=== PATIENT | female | born 1975 | race Caucasian/White ===

== ENCOUNTER 2017-01-03 08:24 | Emergency (ER) | payer MEDICAID ==
[2017-01-03 09:10] LABS: APPEARANCE CLEAR (CLEAR); BILIRUBIN NEGATIVE (NEGATIVE); COLOR YELLOW (YELLOW); GLUCOSE NEGATIVE (NEGATIVE); KETONE NEGATIVE (NEGATIVE); NITRITE NEGATIVE (NEGATIVE); PROTEIN NEGATIVE (NEGATIVE); UROBILINOGEN NORMAL (NORMAL)
[2017-01-03 09:16] LABS: BACTERIA FEW /hpf (NONE SEEN); EPITHELIAL CELLS 0-5 /hpf (0-5); MUCUS <1+ /lpf (NONE SEEN); RED CELLS - URINE OCC /hpf (0-5)
[2017-01-03 11:22] LABS: HCG URINE NEGATIVE (NEGATIVE)
[2017-03-02] MEDS ORDERED: AZO CRANBERRY PO (13:59)
[2017-03-02] MEDS ORDERED: LEXAPRO20 MG PO (13:59)
[2017-03-02] MEDS ORDERED: STOOL SOFTENER100 M1 PO (14:00)
[2017-03-02] MEDS ORDERED: CLARITIN 10 MG10 MG PO (14:00)
[2017-03-03 15:59] VITALS: BMI 28.4
== END 2017-01-03 11:59 | disposition home or self-care (01) ==
LOC: D.ER 08:24
PROVIDERS: Emergency Medicine; Physician Assistant
DX: R10.12 Left upper quadrant pain (principal); N39.0 Urinary tract infection, site not specified; F17.200 Nicotine dependence, unspecified, uncomplicated

== ENCOUNTER 2017-01-21 12:34 | Day surgery (SDC) | payer MEDICAID ==
[2017-01-21 13:06] LABS: BASOPHILS 0.2 % (0-2); EOSINOPHILS 1.4 % (0-7); HEMATOCRIT 37.4 % (36.0-48.0); HEMOGLOBIN 12.7 g/dL (12-16); IMMATURE GRANULOCYTES 0.2 % (0-5); LYMPHOCYTES 26.1 % (15-50); MCH 31.7 pg (26.0-34.0); MCV 93.3 fL (80.0-100.0); MEAN PLATELET VOLUME 8.8 fL (7.4-10.4); MONOCYTES 5.7 % (2-11); NEUTROPHILS 66.4 % (40-80); PLATELET COUNT 267 10x3/uL (130-400); RBC 4.01 10x6/uL (4.00-5.40); RDW 12.8 % (11.5-14.5); WBC 8.5 10x3/uL (4.8-10.8)
[2017-01-21 13:37] LABS: HCG SERUM NEGATIVE (NEGATIVE)
[2017-01-21] MEDS ORDERED: HYDROCODONE-APA1 TAB PO (15:33)
[2017-01-21] MEDS ORDERED: LEXAPRO20 MG PO (15:34)
[2017-01-21] MEDS ORDERED: FOLIC ACID1 MG PO (15:34)
[2017-01-21] MEDS ORDERED: FLOMAX0.4 MG PO (15:34)
[2017-01-21] MEDS ORDERED: BUPROPION HCL100 MG PO (15:34)
[2017-01-21 15:42] VITALS: BP 112/66; BMI 31.2
--- NOTE | 2017-01-21 17:06 | NUR ---
1630-UPDATED ESTIMATED TIME TO SURGERY WILL BE AFTER 1999.
--- NOTE | 2017-01-21 18:23 | NUR ---
1800 UPDATED PATIENT OF DELAY WITH SURGERY. TOLD WILL BE MOVING TO ANOTHER ROOM 2207 THAN TO SURGERY.
--- NOTE | 2017-01-21 19:27 | NUR ---
PT AMBULATED FROM OUTPT WITH NURSE AND AT SIDE. ORIENTED TO ROOM AND CALL LIGHT. REPORTS NO NEEDS AT THIS TIME. CALL LIGHT AT SIDE.
--- NOTE | 2017-01-21 21:00 | NUR ---
PT IN BED WITH AT THE BEDSIDE AWAITING SURGERY. ASSIGNED NURSE HAS ASSISTED HER WITH ALL THE PREP SHE NEEDS FOR PROCEDURE. RESPIRATIONS EASY AND NO DISTRESS NOTED. THE BED IS LOW, RAILS UP X'S 2 WITH THE CALL LIGHT AT HAND.
--- NOTE | 2017-01-21 22:11 | NUR ---
ORDER RECEIVED FROM DR MCLAUGHLIN FOR A NICOTINE PATCH AND VALIUM 5MG PO X1.
--- NOTE | 2017-01-21 23:23 | NUR ---
OUT OF ROOM TO SURGERY
--- NOTE | 2017-01-22 00:29 | NUR ---
RETURNED FROM SURGERY
--- NOTE | 2017-01-25 10:57 | OP ---
PATIENT NAME: JAVIER JOHN MEDICAL RECORD: [id number] :77 LOCATION:D.OPS ADMISSION DATE: SURGEON: HÉCTOR MCLAUGHLIN MD DATE OF OPERATION: 01/22/2017 SURGEON: Héctor Mclaughlin MD ANESTHESIA: TIVA by Phil Hardwick CRNA. PREOPERATIVE DIAGNOSES: Left ureteral and renal stones, 6 mm each times 2. PROCEDURES: Cystoscopy and left ureteral stent insertion with string attached 6-Liberian x 22 cm. FINDINGS: Radiodense stones, one in the proximal left ureter and one in the left kidney. ESTIMATED BLOOD LOSS: Loss None. CLINICAL HISTORY: This is a 41-year-old female, who was found to have bilateral renal stones on the CT scan in 2014. She did not do anything about these stones. Recently, she complained of left-sided flank pain. A CT scan shows one of the 6-mm stones in the left kidney has now gone into the left proximal ureter. There is still another 6-mm stone in the left kidney. She also has a 5-mm stone, which is nonobstructive in the right kidney. She comes now to have a left ureteral stent inserted and we will treat her stones with ESWL in the future. She was given Ancef IV clearing distribution clerk to the OR. DESCRIPTION OF PROCEDURE: The patient was given IV sedation. She was then placed in the dorsal lithotomy position and prepped and draped. A 21-Liberian cystoscope with 30-degree lens was used for visualization. She has single ureteral orifices on each side. No bladder tumors were seen. On fluoroscopy, the stones were easily seen as they are quite radiodense. A Sensor wire was placed into the left ureteral orifice and placed up into the left renal pelvis. Over the wire, a 6-Liberian x 22 cm ureteral stent was inserted. Once the proximal end of the stent was within the kidney, the wire was entirely withdrawn. The distal end of the stent was pushed into the bladder using the pusher. The bladder was then emptied through the cystoscope, sheath, and then the scope was entirely removed. The string on the distal end of the stent is maintained. It was taped to the patient's suprapubic area with a small piece of Tegaderm. The patient was awakened and brought to recovery room. She will be sent home. I will arrange for outpatient lithotripsy in the near future. TRANSINT:[id number] Voice Confirmation ID: [id number] DOCUMENT ID: [id number] HÉCTOR MCLAUGHLIN MD at 1057 CC: [id number] DICTATION DATE: 01/22/17 0018 COMMODITY DIRECTOR: 01/22/17 0105 [facility] 01/22/17 [place] [id number] [place] [id number]
[2017-03-02] MEDS ORDERED: LEXAPRO20 MG PO (13:59)
[2017-03-02] MEDS ORDERED: AZO CRANBERRY PO (13:59)
[2017-03-02] MEDS ORDERED: STOOL SOFTENER100 M1 PO (14:00)
[2017-03-02] MEDS ORDERED: CLARITIN 10 MG10 MG PO (14:00)
== END 2017-01-22 01:51 | disposition home or self-care (01) ==
LOC: D.OPS 12:34 → D.MS 19:13 → D.OPS 01-22 01:51
PROVIDERS: Anesthesiology
DX: N20.2 Calculus of kidney with calculus of ureter (principal); F17.200 Nicotine dependence, unspecified, uncomplicated; Z01.812 Encounter for preprocedural laboratory examination

== ENCOUNTER 2017-01-23 13:45 | Emergency (ER) | payer MEDICAID ==
[~2017-01-23 13:45] MED LIST: BUPROPION HCL100 MG PO; FLOMAX0.4 MG PO; FOLIC ACID1 MG PO; HYDROCODONE-APA1 TAB PO; LEXAPRO20 MG PO
[2017-03-02] MEDS ORDERED: LEXAPRO20 MG PO (13:59)
[2017-03-02] MEDS ORDERED: AZO CRANBERRY PO (13:59)
[2017-03-02] MEDS ORDERED: CLARITIN 10 MG10 MG PO (14:00)
[2017-03-02] MEDS ORDERED: STOOL SOFTENER100 M1 PO (14:00)
== END 2017-01-23 15:54 | disposition home or self-care (01) ==
LOC: D.ER 13:45
DX: G89.18 Other acute postprocedural pain (principal)

== ENCOUNTER 2017-01-27 09:39 | Day surgery (SDC) | payer MEDICAID ==
[2017-01-27 10:36] VITALS: BMI 30.3
--- NOTE | 2017-01-27 14:36 | NUR ---
1400 IV DC WITH CATHER TIP INTACT
--- NOTE | 2017-01-27 14:41 | OP ---
PATIENT NAME: JAVIER JOHN MEDICAL RECORD: [id number] :77 LOCATION:D.OPS ADMISSION DATE: SURGEON: HÉCTOR MCLAUGHLIN MD DATE OF OPERATION: 01/27/2017 SURGEON: Héctor Mclaughlin MD ANESTHESIA: TIVA by Cathleen Zelaya CRNA PREOPERATIVE DIAGNOSES: Left proximal ureteral stone, 6 mm and left renal stone, 6 mm. PROCEDURE: Left ESWL times 3000 shocks. FINDINGS: Radiodense stone. BLOOD LOSS: None. CLINICAL HISTORY: This is a 41-year-old female with a prior history of kidney stones. She has a strong family history of kidney stones in her sister, her brother, and her mother. Recently, she had left renal colic from a renal stone, which went into the UP junction. I have inserted a left ureteral stent. She comes now to have lithotripsy to try to clear out the proximal ureteral stone. She was given Ancef regional safety manager to the OR. DESCRIPTION OF PROCEDURE: The patient was placed on treatment table. The stones were radiodense and easily targeted. We targeted the proximal ureteral stone on the left side in 2 planes. Then, 3000 shocks were given to the stone. The stone did not visibly appear to be altered and so it may not have broken up at all. I will see her in the office in 1 week's time with a KUB. If the stone was untouched by the lithotripsy, then we may have to arrange for a percutaneous nephrolithotomy to get the stones out. TRANSINT:[id number] Voice Confirmation ID: [id number] DOCUMENT ID: [id number] HÉCTOR MCLAUGHLIN MD at 1441 CC: [id number] DICTATION DATE: 01/27/17 1348 COKE INSPECTOR: 01/27/17 1354 [facility] [address] [place] [address]
[2017-03-02] MEDS ORDERED: LEXAPRO20 MG PO (13:59)
[2017-03-02] MEDS ORDERED: AZO CRANBERRY PO (13:59)
[2017-03-02] MEDS ORDERED: CLARITIN 10 MG10 MG PO (14:00)
[2017-03-02] MEDS ORDERED: STOOL SOFTENER100 M1 PO (14:00)
== END 2017-01-27 14:30 | disposition home or self-care (01) ==
LOC: D.OPS 09:39
DX: N20.0 Calculus of kidney (principal); N20.1 Calculus of ureter; Z01.812 Encounter for preprocedural laboratory examination

== ENCOUNTER → 2017-02-04 12:44 | Outpatient (CLI) | payer MEDICAID ==
[2017-01-27 10:36] VITALS: BMI 30.3
[~2017-02-04 12:44] MED LIST changes: +AZO CRANBERRY PO; +CLARITIN 10 MG10 MG PO; +STOOL SOFTENER100 M1 PO; +TUMS500 MG PO; +[UNRECOGNIZED DRUG - OTHER]
== END | disposition home or self-care (01) ==
LOC: D.RAD 02-01 08:15
DX: N20.0 Calculus of kidney (principal)

== ENCOUNTER → 2017-02-11 17:10 | Outpatient (CLI) | payer MEDICAID ==
[2017-01-27 10:36] VITALS: BMI 30.3
== END | disposition home or self-care (01) ==
LOC: D.LABREF 17:10
DX: N39.0 Urinary tract infection, site not specified (principal)

== ENCOUNTER → 2017-02-18 18:04 | Outpatient (CLI) | payer MEDICAID ==
[2017-01-27 10:36] VITALS: BMI 30.3
== END | disposition home or self-care (01) ==
LOC: D.LABREF 18:04
DX: N39.0 Urinary tract infection, site not specified (principal)

== ENCOUNTER 2017-03-03 05:55 | Day surgery (SDC) | payer MEDICAID ==
[2017-03-02 14:13] LABS: BASOPHILS 0.2 % (0-2); EOSINOPHILS 1.6 % (0-7); HEMATOCRIT 36.9 % (36.0-48.0); HEMOGLOBIN 12.5 g/dL (12-16); IMMATURE GRANULOCYTES 0.1 % (0-5); LYMPHOCYTES 21.8 % (15-50); MCH 31.7 pg (26.0-34.0); MCHC 33.9 g/dL (31.0-37.0); MCV 93.7 fL (80.0-100.0); MEAN PLATELET VOLUME 8.6 fL (7.4-10.4); NEUTROPHILS 69.3 % (40-80); PLATELET COUNT 273 10x3/uL (130-400); RBC 3.94 10x6/uL (4.00-5.40); WBC 9.8 10x3/uL (4.8-10.8)
[2017-03-02 14:29] LABS: APTT 25.8 SECONDS (22.8-39.4); INR 0.97 (0.85-1.17); PROTIME 12.5 SECONDS (11.6-15.0)
[2017-03-02 14:34] LABS: CALC OSMOLALITY 276 mosm/kg (275-300); CALCIUM 8.9 mg/dL (8.5-10.1); CARBON DIOXIDE 26.2 mmol/L (21.0-32.0); CHLORIDE - SERUM 103 mmol/L (98-107); CREATININE - SERUM 0.8 mg/dL (0.6-1.3); GLUCOSE 105 mg/dL (74-106); POTASSIUM - SERUM 3.8 mmol/L (3.5-5.1); SODIUM 138 mmol/L (136-145); UREA NITROGEN 15 mg/dL (7-18); eGFR NON AFRICAN AMERICAN 84 mL/min (90-120)
[~2017-03-03] VITALS: Ht 154.9 cm; Wt 68.2 kg
--- NOTE | ~2017-03-03 | HEMODYNAMI ---
PATIENT:JAVIER JOHN MEDICAL RECORD: [id number] : 77 LOCATION:[facility] ADMISSION DATE: 03/03/17 Generatedon:03/03/20179:30 Patient name: JAVIER JOHN Patient #: [id number] SSN: D OB: 1975 Date of study: 03/03/2017 Page: Of Hemodynamic Procedure Report Patient Data Patient Demographics Procedure consent was obtained First Name: JAVIER Gender: Female Last Name: DORA : 1975 Middle Initial: A Age: 41 year(s) Patient #: [id number] Race: Unknown Additional ID: [id number] Contact details [address]: [address] [place] [address] [place] [address] State: [place] City: [place] Zip code: [address] Past Medical History Allergies: No known allergies Admission Admission Data Admission Date: 03/03/2017 Admission Time: 5:55 Procedure Procedure Types Cath Procedure Peripheral Cath Diagnostic Procedure Cath Peripheral Nephro Nephrostomy Tubes Procedure Description Procedure Date Procedure Date: 03/03/2017 Procedure Start Time: 9:01 Procedure Staff Name Function Reinaldo Mayen MD Performing Physician Vivian Jones RT Monitor Fracisco Fitzpatrick RT Scrub Avril España RN Nurse Vivian Jones RT Environmental Field Technician Procedure Data Cath Procedure Fluoroscopy Diagnostic fluoroscopy Total fluoroscopy Time: 3 time: 3 min min Diagnostic fluoroscopy Total fluoroscopy dose: 103 dose: 103 mGy mGy Contrast Material Contrast Material Type Amount (ml) Isovue 300 25 Procedure Medications Medication Administration Route Dosage Oxygen NC 3 l/min Lidocaine 1% added to field 20 Heparin Flush Bag 2 bags (1000units/500ml NS) Versed I.V. 1 mg Fentanyl I.V. 50 mcg Versed I.V. 1 mg Fentanyl I.V. 50 mcg Versed I.V. 1 mg Fentanyl I.V. 50 mcg Versed I.V. 1 mg Fentanyl I.V. 50 mcg Hemodynamics Rest Heart Rate: 79 (bpm) Snapshots Pre Cath Intra NCS Post Cath Vital Signs Time Heart Resp SPO2 etCO2 NIBP (mmHg) Rhythm Pain Sedation Rate (ipm) (%) (mmHg) Status Level (bpm) 8:40:10 70 14 100 27.9 113/77(96) NSR 0 (11) 10(A) , No pain 8:44:21 74 9 100 33.1 111/79(105) NSR 0 (11) 10(A) , No pain 8:48:31 75 10 100 33.2 108/76(86) NSR 0 (11) 10(A) , No pain 8:52:43 76 12 100 32.4 128/70(95) NSR 0 (11) 10(A) , No pain 8:57:05 69 11 100 34.7 108/65(97) NSR 0 (11) 10(A) , No pain 9:02:04 68 11 100 34.7 116/71(99) NSR 0 (11) 10(A) , No pain 9:06:18 67 14 100 33.9 115/74(94) NSR 0 (11) 10(A) , No pain 9:10:30 77 18 100 30.2 102/74(82) NSR 0 (11) 10(A) , No pain 9:14:38 75 14 100 37.7 107/72(85) NSR 0 (11) 10(A) , No pain 9:18:48 70 12 99 36.9 112/70(91) NSR 0 (11) 10(A) , No pain 9:22:56 80 13 99 30.9 122/83(95) NSR 0 (11) 10(A) , No pain 9:27:02 81 21 98 6.7 114/79(93) NSR 0 (11) 10(A) , No pain Medications Time Medication Route Dose Verified Delivered Reason Notes Effec tiveness by by 8:39:57 Oxygen NC 3 Avril Mackenzie used for l/min Taco España mitten sewer RN 8:40:15 Lidocaine 1% added 20ml Avril Najera for local to vial Taco Mayen MD anesthetic field RN 8:41:03 Heparin Flush 2 Avril Najera used for Bag bags Taco Mayen MD procedure (1000units/500ml RN NS) 9:04:36 Versed I.V. 1 mg Reinaldo Avril for Taco Mayen RN sedation 9:05:30 Fentanyl I.V. 50 Reinaldo Avril for mcg Taco Mayen RN sedation 9:11:13 Versed I.V. 1 mg Reinaldo Avril for Taco Mayen RN sedation 9:11:22 Fentanyl I.V. 50 Reinaldo Avril for mcg Taco Mayen RN sedation 9:19:20 Versed I.V. 1 mg Reinaldo Avril for Taco Mayen RN sedation 9:19:28 Fentanyl I.V. 50 Reinaldo Avril for mcg Taco Mayen RN sedation 9:26:32 Versed I.V. 1 mg Reinaldo Avril for Taco Mayen RN sedation 9:26:41 Fentanyl I.V. 50 Reinaldo Avril for mcg Taco Mayen RN sedation Procedure Log Time Note 8:27:37 Use device set IR Diagnostic 8:27:39 Sterile Angiographic Pack opened to sterile field. 8:27:40 Bag Decanter (2002S) opened to sterile field. 8:27:52 KIT, INTRODUCER ACCUSTICK II W/C opened to sterile field. 8:28:03 Time tracking: Regular hours 8:28:19 Plan of Care:Hemodynamics will remain stable., Cardiac rhythm will remain stable., Comfort level will be maintained., Respiratory function will remain adequate., Patient/ family verbilizes understanding of procedure., Procedure tolerated without complication., Recovers from procedure without complications.. 8:28:44 Patient received from Outpatients to IR Alert and oriented. Tansferred to table in Supine position. 8:29:00 Signed procedure consent form obtained from patient. 8:29:08 H&P Date Dictated: 03/03/2017 Within 30 days and on chart.. 8:29:11 Pre-procedure instructions explained to patient. 8:29:11 Pre-op teaching completed and patient verbalized understanding. 8:29:13 Family in waiting room. 8:29:16 Patient NPO since Midnight. 8:29:57 Patient allergic to No known allergies 8:30:03 Is the patient allergic to Iodine/contrast media? No. 8:30:06 Is patient on blood thinner?No 8:30:09 Patient diabetic? No. 8:30:12 8:30:13 ----Pre-sedation anethsthesia assessment.---- 8:30:16 Previous problem with sedation/anesthesia? No ? 8:30:19 Snore? No 8:30:21 Sleep apnea? No 8:30:25 Deviated septum? No 8:30:27 Opens mouth fully? Yes 8:30:29 Sticks out tongue? Yes 8:30:32 Airway obstruction? No ? 8:30:36 Dentures? No ? 8:30:51 IV patent on arrival in left hand with 0.9% NaCl at [facility]. 8:30:57 8:38:40 ECG and BP/O2 sat monitors applied to patient. 8:38:41 Vital chart was started 8:38:42 Baseline sample Acquired. 8:38:43 Full Disclosure recording started 8:38:44 8:39:00 Left renal area was prepped with chlora-prep and draped in sterile fashion 8:39:57 Oxygen 3 l/min NC was administered by Avril España RN; used for procedure; 8:40:15 Lidocaine 1% 20ml vial added to field was administered by Reinaldo Mayen MD; for local anesthetic; 8:41:03 Heparin Flush Bag (1000units/500ml NS) 2 bags was administered by Reinaldo Mayen MD; used for procedure; 8:59:00 Physician arrived 9:00:31 --------ALL STOP TIME OUT------ 9:00:32 Final Timeout: patient, procedure, and site verified with staff and physician. All members of the team are in agreement. 9:00:40 Sedation plan: IV Moderate Sedation Medication:Versed, Fentanyl 9:00:45 Patient pain scale 0/10 ?. 9:00:50 9:01:06 Procedure started. 9:01:23 Local anesthetic to Lt renal area with Lidocaine 1% by Reinaldo Mayen MD.INITIAL ACCESS ONLY 9:04:36 Versed 1 mg I.V. was administered by Avril España RN; for sedation; 9:05:30 Fentanyl 50 mcg I.V. was administered by Avril España RN; for sedation; 9:06:22 CHIBA 22 X 15 needle opened to sterile field. 9:06:53 ultrasound guidance used 9:11:13 Versed 1 mg I.V. was administered by Avril España RN; for sedation; 9:11:22 Fentanyl 50 mcg I.V. was administered by Avril España RN; for sedation; 9:19:20 Versed 1 mg I.V. was administered by Avril España RN; for sedation; 9:19:28 Fentanyl 50 mcg I.V. was administered by Avril España RN; for sedation; 9:21:33 Terumo TORQUE DEVICE PLASTIC .038 opened to sterile field. 9:21:39 Terumo ANGLE 180L glide wire opened to sterile field. 9:23:21 Terumo 5FR ANGLED 65CM glide catheter opened to sterile field. 9:23:37 Terumo Angled SS 180cm glide wire opened to sterile field. 9:26:13 Tegaderm 4 x 4 (1626W) opened to sterile field. 9:26:32 Versed 1 mg I.V. was administered by Avril España RN; for sedation; 9:26:41 Fentanyl 50 mcg I.V. was administered by Avril España RN; for sedation; 9:27:14 5fr glidecath placed in the left kidney 9:28:12 Procedure ended.(Physican Out) 9:28:27 Fluoroscopy time 03.00 minutes. 9:28:35 Fluoroscopy dose: 103 mGy 9:28:35 Flurop Dose total: 103 9:28:39 Contrast amount:Isovue 300 25ml. 9:28:45 Procedure and supply charges have been captured, reviewed, submitted and are correct. 9:28:52 Report given to Outpatients. 9:29:03 Patient transfered to Outpatients with Stretcher. 9:29:59 Vital chart was stopped Device Usage Item Name Manufacture Quantity Catalog Hospital Part Current Minimal Lot# / Number Charge Number Stock Stock Serial# Code Sterile Cardinal 1 [id number] 5 Angiographic Health Pack Bag Decanter Microtek 1 2001S [id number] 5 (2001S) Medical Inc. KIT, Mcgrady 1 [id number] [id number] [id number] [id number] 5 INTRODUCER Scientific ACCUSTICK II W/C CHIBA 22 X Cook Medical 1 [id number] 074484 [id number] 5 15 needle Terumo Mcgrady 1 TD01 876729 594205 736825 5 TORQUE Scientific DEVICE PLASTIC .038 Terumo ANGLE Terumo 1 [id number] 641518 247878 349548 5 180L glide wire Terumo 5FR Terumo 1 [id number] 235367 983899 5 ANGLED 65CM glide catheter Terumo Terumo 1 [id number] 873094 841228 5 Angled SS 180cm glide wire Tegaderm 4 x 3M 1 1626W 707842 [id number] [id number] 5 4 (1626W) Signature Audit Breese Stage Time Signature Unsigned Intra-Procedure 03/03/2017 Vivian Jones 9:29:56 AM RT(R) Signatures Monitor : Vivian Jones RT Signature : Date : Time : [facility] [address] [place] [address]
[~2017-03-03 05:55] MED LIST changes: -TUMS500 MG PO; -[UNRECOGNIZED DRUG - OTHER]
[2017-03-03] MEDS ORDERED: [UNRECOGNIZED DRUG - OTHER] (07:31)
[2017-03-03] MEDS ORDERED: TUMS500 MG PO (07:33)
[2017-03-03 07:39] VITALS: BP 100/52; BMI 29.9
[2017-03-03 08:00] LABS: HCG URINE NEGATIVE (NEGATIVE)
--- NOTE | 2017-03-03 12:05 | NUR ---
CYSTO DONE PRIOR TO TURNING FOR PERC NEPHRO PROCEDURE, SAFETY MEASURES TAKEN PRESSURE POINTS PADDED AND SEURED ALL AREAS CHECKED FOR IMPINGEMENT NONE FOUND, DR MCLAUGHLIN PRESENT FOR POSITIONING, [facility]
--- NOTE | 2017-03-03 14:29 | NUR ---
PATIENT WAS POSITIONED LITHOTOMY AFTER PERC NEPHRO FOR CYSTO URETEROSCOPY, PATIENT MOVED WITH CARE AND PRECAUTIONS, DR MCLAUGHLIN PRESENT FOR TRINY XAVIER
[2017-03-03 15:52] VITALS: BP 96/62
[2017-03-03 15:59] VITALS: BP 96/62; Ht 154.9 cm; Wt 68.2 kg
--- NOTE | 2017-03-03 16:06 | NUR ---
PT ADMITTED TO FLOOR FROM RECOVERY ROOM. VSS.
[2017-03-03 20:00] VITALS: BP 100/70
[2017-03-04] VITALS: BP 131/77
[2017-03-04 04:00] VITALS: BP 104/62
--- NOTE | 2017-03-04 07:15 | NUR ---
REPORT RECEIVED FROM BLUE LINE TRIMMER NURSE. CALL LIGHT IN REACH.
[2017-03-04 08:55] VITALS: BP 106/70
--- NOTE | 2017-03-04 09:09 | NUR ---
ASSESSMENT COMPLETED. STATES HER HEAD IS HURTING AT AN 8 ON SCALE OF 0-10. EXPLAINED TO PATIENT THAT IT COULD BE A REBOUND COTTON FROM ALL OF THE PAIN MEDS SHE HAS HAD. AM MEDS ADMINISTERED WITH NORCO PO. ASSISTED PATIENT TO CHAIR FOR BREAKFAST BECAUSE SHE HAS NOT BEEN OOB YET. SCDs TO BLE. CALL LIGHT IN REACH. WILL CONTINUE WITH PLAN OF CARE.
--- NOTE | 2017-03-04 11:13 | OP ---
PATIENT NAME: JAVIER JOHN MEDICAL RECORD: [id number] :77 LOCATION:D.MS [id number] ADMISSION DATE: SURGEON: HÉCTOR MCLAUGHLIN MD DATE OF OPERATION: 03/03/2017 SURGEON: Héctor Mclaughlin MD ANESTHESIA: General anesthesia by Kalin Arroyo MD PREOPERATIVE DIAGNOSES: Left renal stone, 6 mm; and radiodense left proximal ureteral 6-mm stone. POSTOPERATIVE DIAGNOSES: Left renal stone, 6 mm; and radiodense left proximal ureteral 6-mm stone. PROCEDURES: Cystoscopy, left percutaneous nephrolithotomy, left ureteroscopy and holmium laser lithotripsy, stone extraction, and left nephrostomy tube insertion. FINDINGS: Radiodense stones. Cluster of small rounded beads in the kidney, adding up to 6 mm in size. In the ureter, was a very hard impacted calcification. ESTIMATED BLOOD LOSS: Less than 100 mL. CLINICAL HISTORY: This is a 41-year-old female with a prior history of kidney stones. She initially presented with acute left flank pain due to a 6-mm stone lodged in the proximal ureter. There was also a nonobstructive 6-mm stone, which was radiodense in the left kidney. She had a left ureteral stent inserted and we took her to lithotripsy. The lithotripsy did not break either the stones up at all on followup KUB. She comes now to have a left percutaneous nephrolithotomy with view to taking out the stone in the kidney and also to remove the stone in the proximal ureter by ureteroscopy in an antegrade fashion. Earlier today, she had placement of a nephroureteral catheter which goes from the skin into the left kidney, down the ureter, and into the bladder. Her current stent is also still present. She was given Ancef cotton puller to the OR. She is not allergic to any medication. DESCRIPTION OF PROCEDURE: The patient was initially prepped and draped in supine position after having been given general anesthetic. She was frog legged and then we performed cystoscopy with rigid cystoscope. The old ureteral stent was removed entirely. The nephroureteral access tube was drawn out through the urethra. It was in the position between the legs. We then turned over into prone position. She was then reprepped and redraped. The nephroureteral tube was accessed using an Amplatz Super Stiff wire. Once this wire was down through the nephroureteral tube and out through its exit between the legs, a clamp was applied to the distal end of the wire with a hemostat. The nephroureteral access sheath could then be completely removed without losing our access. A small incision was made on either side of the wire sufficient to allow our working sheath to be placed. A dual lumen catheter was placed down the proximal ureter and a second wire, which was a Sensor wire, was placed down the ureter into the bladder. This acts as a safety wire. The Sensor wire was clamped to the drapes and we worked over the Super Stiff wire. A NephroMax tract dilation balloon was used to dilate the tract with 20 atmospheres of pressure. The 30-German working sheath was then placed over the balloon into position. Going OPERATIVE REPORT [id number] JAVIER JOHN into the kidney, we initially had a lot of difficulty visualizing the stone in the kidney. Finally, I took a flexible nephroscope and looked into each of the calices. These did not show any obvious stones. Eventually, as we reverted back to the rigid nephroscope, we identified some apparent material stuck under the mucosa of the renal pelvis. As we unroofed this mucosa by abrading the scope against it, a large cluster of small rounded beads came out. These were removed using the ultrasonic probe and as well by just using grasping forceps. We then turned our attention to the ureteral stone. The flexible nephroscope was too large to go down the UP junction. We switched over to the flexible ureteroscope. We went down to the level of the stone. Attempts to basket the stone were unsuccessful as the stone was completely impacted in the ureter. A 365 micron holmium laser fiber was then placed and we fragmented the stone using holmium laser energy. However, the basket still would not pass from an antegrade fashion. At this point, I decided to place the patient's nephrostomy tube and try to complete the ureteroscopy from below. Therefore, the 22-German Malecot nephrostomy tube was placed into the renal pelvis. The working sheath was removed. The Super Stiff wire was entirely removed by pulling it distally using the clamp on the wire. The nephrostomy tube was sutured to the skin using a 2-0 nylon stitch. Dressings were applied and the nephrostomy tube was put to bag drainage. The patient was then turned back into supine position using a stretcher. She was then placed into dorsal lithotomy position. She was reprepped and redraped. Using cystoscope and grasping forceps, I was able to pull out the Sensor wire which had acted as our safety wire earlier. A clamp was put on it. This is to prevent the wire from being lost. The rigid ureteroscope was used to follow the wire. Since the patient had a ureteral stent in for some period of time, the ureter was nice and dilated. Going into the level of the stone, I managed to push it proximally using the tip of the scope. A 0-tip 4-wire basket was then able to completely encompass the stone. The stone within the basket and with the scope as a unit were moved distally and the stone was finally completely extracted. A repeat look with the ureteroscope revealed no further stone fragments in the ureter. At this point, the bladder was emptied. the Sensor wire was entirely removed by pulling it proximally through the back. The patient was brought to recovery room. TRANSINT:[id number] Voice Confirmation ID: [id number] DOCUMENT ID: [id number] HÉCTOR MCLAUGHLIN MD at 1113 CC: [id number] DICTATION DATE: 03/03/17 1526 FULL DECATOR OPERATOR: 03/03/17 191 [facility] [address] [place] [address]
--- NOTE | 2017-03-04 11:31 | NUR ---
STATES PAIN IS DOWN TO A 7. REQUESTING NICOTINE PATCH.
--- NOTE | 2017-03-04 11:49 | NUR ---
NICOTINE PATCH TO RIGHT ARM. BACK IN ROOM. CALL LIGHT IN REACH.
--- NOTE | 2017-03-04 12:02 | NUR ---
PASSWORD OBTAINED AND PLACED IN COMPUTER.
[2017-03-04 13:25] VITALS: BP 109/70
--- NOTE | 2017-03-04 14:18 | NUR ---
NORCO PO WITH AFTERNOON MEDS. IV DC'D WITH TIP INTACT.
--- NOTE | 2017-03-04 14:26 | NUR ---
AWAKE AND ALERT. ORIENTED X3. UP IN ROOM PER SELF. DENIES NEEDS. REPORTS PAIN IMPROVED AT THIS TIME.
[2017-03-04] MEDS ORDERED: HYDROCODONE-APA1 TAB PO (14:36)
--- NOTE | 2017-03-04 15:03 | NUR ---
PT READY FOR DC HOME. WIHTOUT NEEDS.
--- NOTE | 2017-03-04 15:22 | NUR ---
DC INSTRUCTIONS EXPLAINED TO PATIENT AND . BOTH VERBALIZED UNDERSTANDING. RX FOR NORCO HANDED TO PATIENT.
--- NOTE | 2017-03-04 15:24 | NUR ---
DC'D TO VEHICLE VIA WC WITH .
[2017-03-14 17:11] LABS: CALCULI - CA HYDROGEN PHOS 10 % (()); CALCULI - CA OXALATE DIHYDRATE 25 % (()); CALCULI - CA OXALATE MONOHYDR 30 % (()); CALCULI - CALCIUM PHOSPHATE 35 % (()); CALCULI - COLOR Brown (())
== END 2017-03-04 15:24 | disposition home or self-care (01) ==
LOC: D.MS 05:55 → D.OPS 05:55 → D.PAN 07:30 → D.OPS 07:30 → D.PAN 08:00 → D.OPS 08:00 → D.PAN 09:00 → D.MS 15:27 → D.OPS 03-04 15:24
PROVIDERS: General Practice; Urology
DX: N20.2 Calculus of kidney with calculus of ureter (principal); Z87.442 Personal history of urinary calculi; Z01.812 Encounter for preprocedural laboratory examination

== ENCOUNTER 2017-03-07 08:32 | Emergency (ER) | payer MEDICAID ==
[2017-03-03 15:59] VITALS: BMI 28.4
[~2017-03-07 08:32] MED LIST changes: +TUMS500 MG PO; +[UNRECOGNIZED DRUG - OTHER]
[2017-03-07 09:28] LABS: APPEARANCE CLEAR (CLEAR); BACTERIA MODERATE /hpf (NONE SEEN); BILIRUBIN NEGATIVE (NEGATIVE); COLOR STRAW (YELLOW); GLUCOSE NEGATIVE (NEGATIVE); KETONE NEGATIVE (NEGATIVE); MUCUS <1+ /lpf (NONE SEEN); NITRITE NEGATIVE (NEGATIVE); PROTEIN NEGATIVE (NEGATIVE); RED CELLS - URINE RARE /hpf (0-5); SPECIFIC GRAVITY 1.015 (1.005-1.020); UROBILINOGEN NORMAL (NORMAL); WHITE CELLS - URINE 0-5 /hpf (0-5)
== END 2017-03-07 10:23 | disposition home or self-care (01) ==
LOC: D.ER 08:32
PROVIDERS: Emergency Medicine
DX: G89.18 Other acute postprocedural pain (principal); N39.0 Urinary tract infection, site not specified; F17.200 Nicotine dependence, unspecified, uncomplicated

== ENCOUNTER → 2017-03-31 16:31 | Outpatient (CLI) | payer MEDICAID ==
[2017-03-03 15:59] VITALS: BMI 28.4
== END | disposition home or self-care (01) ==
LOC: D.LAB 16:31
DX: E21.3 Hyperparathyroidism, unspecified (principal)

== ENCOUNTER → 2017-09-22 16:49 | Outpatient (CLI) | payer OTHER ==
[2017-03-03 15:59] VITALS: BMI 28.4
== END | disposition home or self-care (01) ==
LOC: D.MAMMO 08-30 13:45
DX: Z12.31 Encounter for screening mammogram for malignant neoplasm of breast (principal)

== ENCOUNTER 2017-10-03 06:01 | Outpatient (CLI) | payer OTHER ==
[2017-03-03 15:59] VITALS: BMI 28.4
== END 2017-10-03 23:59 | disposition home or self-care (01) ==
LOC: D.MAMMO 06:01
DX: R92.8 Other abnormal and inconclusive findings on diagnostic imaging of breast (principal)